=== PATIENT | male | born 1995 | race Caucasian/White ===

== ENCOUNTER 2021-06-05 15:07 | Emergency (ER) | payer BC, SELFPAY ==
[~2021-06-05] VITALS: Ht 177.8 cm; Wt 63.6 kg
[2021-06-05 15:08] VITALS: BP 145/77
== END 2021-06-05 15:27 | disposition left against medical advice (07) ==
LOC: M ED 15:07
DX: Z53.21 Procedure and treatment not carried out due to patient leaving prior to being seen by health care provider (principal)